=== PATIENT | female | born 1955 | race African-American/Black ===

== ENCOUNTER 2024-08-07 15:14 | Emergency (ER) | payer OTHER ==
[2024-08-07 15:47] VITALS: BP 154/59; PULSE 89; RESP 16; TEMP 98.4; BMI 27.3
== END 2024-08-07 19:08 | disposition home or self-care (01) ==
LOC: JERFT 15:14
DX: S20.213A Contusion of bilateral front wall of thorax, initial encounter (principal); M54.50 Low back pain, unspecified; V00.811A Fall from moving wheelchair (powered), initial encounter; Y99.0 Civilian activity done for income or pay
CPT/HCPCS: 71046-TC-FY; 93005; 93010; 99284-25